=== PATIENT | female | born 1950 | race African-American/Black ===

== ENCOUNTER 2021-09-23 04:36 | Inpatient (IN) | payer MEDICARE, MEDICAID ==
[2021-09-23] VITALS (73 sets, daily range): BP systolic 68–171; BP diastolic 25–98
[~2021-09-23] VITALS: Ht 165.1 cm; Wt 63.5 kg
[~2021-09-23 04:36] MED LIST: ASPI-518 PO; ATEN50TA PO; BENA40TA66 PO; IBUP-2029 PO; OXYB5TAB16 PO; [UNRECOGNIZED DRUG - REMARK]
[2021-09-23] MEDS ORDERED: DILTIAZEM HCL 125 MG in DEXT 5% WATER 100 ML IV ONE (05:00)
[2021-09-23] MEDS ORDERED: PIPERACILLIN/TAZ 3.375G PREMIX 50 ML IV ONE (05:00)
[2021-09-23] MEDS ORDERED: VANCOMYCIN 1G PREMIX 200 ML IV ONE (05:00)
[2021-09-23] MEDS ORDERED: SODIUM CHLORIDE 0.9% 1000ML BAG (SEPSIS BOLUS) IV ONE (05:00)
[2021-09-23 05:01] LABS: HEMATOCRIT. 42.3 % (36.0-48.0); HEMOGLOBIN. 14.1 g/dL (12.0-16.0); MEAN CORPUSCULAR HEMOGLOBIN 31.2 pg (28.0-32.0); MEAN CORPUSCULAR VOLUME 93.6 fL (81.0-99.0); MEAN PLATELET VOLUME 9.7 fl (7.4-10.4); PLATELET 306 x1000/uL (130-400); RED BLOOD CELL COUNT 4.52 mill/uL (4.2-5.4); RED CELL DISTRIBUTION WIDTH 14.1 % (11.6-14.6)
[2021-09-23 05:10] LABS: CHLORIDE 96 mEq/L (98-107)
[2021-09-23] MEDS ORDERED: DILTIAZEM HCL 125 MG in DEXT 5% WATER 100 ML IV NR (05:15)
[2021-09-23 05:19] LABS: CREATINE KINASE 180 IU/L (26-192); ETHANOL BLOOD < 10 mg/dL
[2021-09-23 05:25] LABS: PLATELET ESTIMATE NORMAL
[2021-09-23] MEDS ORDERED: DILTIAZEM HCL 5MG/ML 5ML VIAL IV ONE (05:30)
[2021-09-23] MEDS ORDERED: DIGOXIN 500MCG/2ML AMP IV NR (05:30)
[2021-09-23] MEDS ORDERED: DILTIAZEM HCL 5MG/ML 10ML VIAL IV NR (05:45)
[2021-09-23] MEDS ORDERED: ASPIRIN 325MG EC TABLET PO NR (06:00)
[2021-09-23] MEDS ORDERED: SODIUM CHLORIDE 0.9% 1,000 ML IV ONE (06:15)
[2021-09-23] MEDS: DEXT 5%/0.45% NACL 1000ML 1,000 ML IV SCH ×3 (08:40→22:16)
[2021-09-23] MEDS ORDERED: AMIODARONE HCL 150 MG in DEXT 5% WATER 97 ML IV NR (09:00)
[2021-09-23] MEDS: AMIODARONE HCL 900 MG in DEXT 5% WATER 482 ML IV PRN (09:11)
[2021-09-23] MEDS ORDERED: LIDOCAINE HCL 1% 10 MG/ML 10ML VIAL ONE (09:49)
[2021-09-23] MEDS ORDERED: POTASSIUM CHLORIDE INJ 40 MEQ in DEXT 5% WATER 500 ML IV NR (10:00)
[2021-09-23] MEDS ORDERED: SODIUM CHLORIDE 0.45% 250 ML IV SCH (10:00)
[2021-09-23] MEDS ORDERED: ACETAMINOPHEN 325MG TABLET PO PRN (10:45)
[2021-09-23] MEDS ORDERED: MAGNESIUM/ALUMINUM HYDROXIDE/SIMETHICONE 30ML UDC PO PRN (10:45)
[2021-09-23] MEDS ORDERED: IPRATROPIUM BROMIDE (0.02%) 0.5MG/2.5ML NEB HHN PRN (12:00)
[2021-09-23] MEDS: PHENYLEPHRINE 100 MG in DEXT 5% WATER 240 ML IV PRN (12:13)
[2021-09-23] MEDS ORDERED: METO-539 MT (13:07)
[2021-09-23] MEDS ORDERED: HYDR100T26 PO (13:07)
[2021-09-23] MEDS ORDERED: LISI10TA26 MT (13:07)
[2021-09-23] MEDS ORDERED: METHIMAZOLE 10MG TABLET PO SCH (14:00)
[2021-09-23 14:04] LABS: CLARITY URINE TURBID (CLEAR); COLOR URINE DARK YELLOW (YELLOW); KETONES URINE TRACE (NEGATIVE); LEUKOCYTE ESTERASE URINE 3+ (NEGATIVE); NITRITE URINE NEGATIVE (NEGATIVE); OCCULT BLOOD URINE 1+ (NEGATIVE); PROTEIN URINE 3+ (NEGATIVE); SPECIFIC GRAVITY URINE 1.022 (1.005-1.030); UROBILINOGEN URINE 0.2 E.U./dL (0.2-1.0)
[2021-09-23] MEDS ORDERED: SODIUM CHLORIDE 0.45% 500 ML IV SCH (14:15)
[2021-09-23] MEDS ORDERED: AMIODARONE HCL 150 MG in DEXT 5% WATER 100 ML IV SCH (14:15)
[2021-09-23] MEDS: PROPRANOLOL HCL 10MG TABLET PO SCH ×2 (17:22→22:00)
[2021-09-23 17:58] LABS: BG BASE EXCESS 7.2 mmol/L (-2.0-2.0); BG CARBOXYHEMOGLOBIN 0.3 % (0.5-1.5); BG DEOXYHEMOGLOBIN 5.1 % (0.0-5.0); BG FRACTION INSPIRED OXYGEN 28; BG HCO3 ACT 32.1 mmol/L (22.0-26.0); BG METHEMOGLOBIN 0.2 % (0.0-1.5); BG OXYGEN SATURATION 94.9 % (92.0-98.5); BG OXYHEMOGLOBIN 94.4 % (94.0-97.0); BG PCO2 46.2 mmHg (35.0-45.0); BG PO2 73.9 mmHg (75.0-100.0); BG SAMPLE SITE RIGHT BRACHIAL; BG TOTAL HEMOGLOBIN 14.5 g/dL (12.0-18.0); BG VENT MODE NASAL CANNULA
[2021-09-23] MEDS ORDERED: DIGOXIN 500MCG/2ML AMP IV SCH (18:00)
[2021-09-23] MEDS: PIPERACILLIN/TAZOBACTAM 3.375 G in DEXTROSE 5% WATER 50 ML IV SCH (18:59)
[2021-09-23] MEDS: PANTOPRAZOLE SODIUM 40 MG/VIAL IV SCH (22:16)
[2021-09-23 23:06] LABS: BG BASE EXCESS 4.2 mmol/L (-2.0-2.0); BG CARBOXYHEMOGLOBIN 0.2 % (0.5-1.5); BG DEOXYHEMOGLOBIN 6.6 % (0.0-5.0); BG FRACTION INSPIRED OXYGEN 100; BG HCO3 ACT 29.7 mmol/L (22.0-26.0); BG METHEMOGLOBIN 0.2 % (0.0-1.5); BG OXYGEN SATURATION 93.4 % (92.0-98.5); BG PCO2 48.2 mmHg (35.0-45.0); BG PH 7.408 (7.350-7.450); BG PO2 71.2 mmHg (75.0-100.0); BG SAMPLE SITE RIGHT RADIAL; BG TOTAL HEMOGLOBIN 13.7 g/dL (12.0-18.0); BG VENT MODE MASK - NRB
[2021-09-24] VITALS (96 sets, daily range): BP systolic 76–148; BP diastolic 36–100
[2021-09-24 03:50] LABS: CHLORIDE 104 mEq/L (98-107)
[2021-09-24 04:07] LABS: PHOSPHORUS 1.7 mg/dL (2.5-4.9); T4 FREE 1.62 ng/dL (0.76-1.46)
[2021-09-24] MEDS: DEXT 5%/0.45% NACL 1000ML 1,000 ML IV SCH ×4 (04:33→21:17)
[2021-09-24] MEDS ORDERED: MAGNESIUM 2 G PREMIX 50 ML IV SCH (05:00)
[2021-09-24] MEDS: PROPRANOLOL HCL 10MG TABLET PO SCH ×3 (05:18→21:12)
[2021-09-24] MEDS ORDERED: POTASSIUM CHLORIDE INJ 60 MEQ in DEXT 5% WATER 500 ML IV SCH (06:00)
[2021-09-24] MEDS: AMIODARONE HCL 900 MG in DEXT 5% WATER 482 ML IV PRN (06:07)
[2021-09-24 06:24] LABS: HEMATOCRIT. 40.4 % (36.0-48.0); HEMOGLOBIN. 13.5 g/dL (12.0-16.0); MEAN CORPUSCULAR HEMOGLOBIN 31.1 pg (28.0-32.0); MEAN CORPUSCULAR VOLUME 93.3 fL (81.0-99.0); MEAN PLATELET VOLUME 10.4 fl (7.4-10.4); PLATELET 263 x1000/uL (130-400); RED BLOOD CELL COUNT 4.33 mill/uL (4.2-5.4); RED CELL DISTRIBUTION WIDTH 14.1 % (11.6-14.6)
[2021-09-24] MEDS ORDERED: METHIMAZOLE 5MG TABLET PO SCH (08:20)
[2021-09-24 08:53] LABS: PLATELET ESTIMATE NORMAL
[2021-09-24] MEDS ORDERED: SODIUM PHOS,M-BASIC-D-BASIC 30 MM in DEXT 5% WATER 500 ML IV NR (09:00)
[2021-09-24] MEDS: PANTOPRAZOLE SODIUM 40 MG/VIAL IV SCH ×2 (09:03→21:17)
[2021-09-24] MEDS: METHIMAZOLE 10MG TABLET PO SCH ×2 (09:03→16:53)
[2021-09-24] MEDS: PIPERACILLIN/TAZOBACTAM 3.375 G in DEXTROSE 5% WATER 50 ML IV SCH ×2 (09:03→21:18)
[2021-09-24] MEDS: PHENYLEPHRINE 100 MG in DEXT 5% WATER 240 ML IV PRN (16:09)
[2021-09-25] VITALS (94 sets, daily range): BP systolic 94–171; BP diastolic 43–96
[2021-09-25] MEDS: DEXT 5%/0.45% NACL 1000ML 1,000 ML IV SCH ×2 (03:37→09:13)
[2021-09-25] MEDS: PROPRANOLOL HCL 10MG TABLET PO SCH (06:00)
[2021-09-25 06:20] LABS: BASOPHILS % 0.1 % (0.0-2.0); EOSINOPHILS % 0.9 % (0.0-5.0); HEMATOCRIT. 38.2 % (36.0-48.0); HEMOGLOBIN. 12.8 g/dL (12.0-16.0); MEAN CORPUSCULAR HEMOGLOBIN 31.3 pg (28.0-32.0); MEAN CORPUSCULAR VOLUME 93.6 fL (81.0-99.0); MEAN PLATELET VOLUME 10.3 fl (7.4-10.4); MONOCYTES % 5.9 % (2.0-8.0); NEUTROPHILS % 79.1 % (40.0-76.0); PLATELET 257 x1000/uL (130-400); RED BLOOD CELL COUNT 4.09 mill/uL (4.2-5.4); RED CELL DISTRIBUTION WIDTH 14.2 % (11.6-14.6)
[2021-09-25 07:12] LABS: PHOSPHORUS 2.8 mg/dL (2.5-4.9)
[2021-09-25] MEDS: PIPERACILLIN/TAZOBACTAM 3.375 G in DEXTROSE 5% WATER 50 ML IV SCH ×2 (08:18→20:35)
[2021-09-25] MEDS: PANTOPRAZOLE SODIUM 40 MG/VIAL IV SCH ×2 (08:18→20:35)
[2021-09-25] MEDS: METHIMAZOLE 10MG TABLET PO SCH ×3 (08:19→16:08)
[2021-09-25] MEDS: DEXT 5%/0.9% NACL 1,000 ML IV SCH ×2 (09:45→22:22)
[2021-09-25 09:51] LABS: BG BASE EXCESS 3.3 mmol/L (-2.0-2.0); BG CARBOXYHEMOGLOBIN 0.3 % (0.5-1.5); BG DEOXYHEMOGLOBIN 2.8 % (0.0-5.0); BG FRACTION INSPIRED OXYGEN 28; BG HCO3 ACT 27.8 mmol/L (22.0-26.0); BG METHEMOGLOBIN 0.3 % (0.0-1.5); BG OXYGEN SATURATION 97.2 % (92.0-98.5); BG OXYHEMOGLOBIN 96.6 % (94.0-97.0); BG PCO2 41.7 mmHg (35.0-45.0); BG PH 7.441 (7.350-7.450); BG PO2 95.7 mmHg (75.0-100.0); BG SAMPLE SITE RIGHT RADIAL; BG TOTAL HEMOGLOBIN 12.5 g/dL (12.0-18.0); BG VENT MODE NASAL CANNULA
[2021-09-26] VITALS (79 sets, daily range): BP systolic 112–155; BP diastolic 57–86
[2021-09-26] MEDS: DIPHENHYDRAMINE 50MG/ML VIAL IV PRN (04:23)
[2021-09-26 06:42] LABS: EOSINOPHILS % 1.1 % (0.0-5.0); HEMATOCRIT. 31.8 % (36.0-48.0); HEMOGLOBIN. 10.6 g/dL (12.0-16.0); LYMPHOCYTES % 10.8 % (20.0-50.0); MEAN CORPUSCULAR VOLUME 93.1 fL (81.0-99.0); MEAN PLATELET VOLUME 9.9 fl (7.4-10.4); MONOCYTES % 6.8 % (2.0-8.0); NEUTROPHILS % 81.3 % (40.0-76.0); PLATELET 198 x1000/uL (130-400); RED BLOOD CELL COUNT 3.42 mill/uL (4.2-5.4); RED CELL DISTRIBUTION WIDTH 13.9 % (11.6-14.6)
[2021-09-26] MEDS: PIPERACILLIN/TAZOBACTAM 3.375 G in DEXTROSE 5% WATER 50 ML IV SCH ×3 (09:34→21:41)
[2021-09-26] MEDS: METHIMAZOLE 10MG TABLET PO SCH ×2 (09:34→18:10)
[2021-09-26] MEDS: PANTOPRAZOLE SODIUM 40 MG/VIAL IV SCH ×2 (11:04→21:42)
[2021-09-26] MEDS: DEXT 5%/0.9% NACL 1,000 ML IV SCH (11:49)
[2021-09-26 11:52] LABS: PHOSPHORUS 1.7 mg/dL (2.5-4.9)
[2021-09-26] MEDS: BLOOD SUGAR DIAGNOSTIC STRIP TEST SCH ×2 (13:00→17:01)
[2021-09-26] MEDS ORDERED: DEXTROSE 50% WATER 50ML SYRINGE IV PRN (13:00)
[2021-09-26] MEDS: KCL 20MEQ/100ML PREMIX 100 ML IV SCH ×2 (13:14→15:16)
[2021-09-26] MEDS ORDERED: KCL 20MEQ/100ML PREMIX 100 ML IV NR (17:30)
[2021-09-27] VITALS (46 sets, daily range): BP systolic 138–192; BP diastolic 70–107
[2021-09-27] MEDS: ACETYLCYSTEINE 100MG/ML 10% VIAL 4ML INH SCH ×3 (00:40→16:39)
[2021-09-27] MEDS: IPRATROPIUM BROMIDE (0.02%) 0.5MG/2.5ML NEB HHN SCH ×6 (00:40→20:26)
[2021-09-27] MEDS: DEXT 5%/0.9% NACL 1,000 ML IV SCH (01:56)
[2021-09-27 05:08] LABS: BASOPHILS % 0.2 % (0.0-2.0); EOSINOPHILS % 1.5 % (0.0-5.0); HEMATOCRIT. 33.7 % (36.0-48.0); HEMOGLOBIN. 11.4 g/dL (12.0-16.0); LYMPHOCYTES % 13.2 % (20.0-50.0); MEAN CORPUSCULAR HEMOGLOBIN 31.6 pg (28.0-32.0); MEAN CORPUSCULAR VOLUME 93.1 fL (81.0-99.0); MEAN PLATELET VOLUME 9.3 fl (7.4-10.4); MONOCYTES % 8.6 % (2.0-8.0); NEUTROPHILS % 76.5 % (40.0-76.0); PLATELET 229 x1000/uL (130-400); RED BLOOD CELL COUNT 3.62 mill/uL (4.2-5.4); RED CELL DISTRIBUTION WIDTH 13.9 % (11.6-14.6)
[2021-09-27 05:21] LABS: PHOSPHORUS 1.3 mg/dL (2.5-4.9)
[2021-09-27] MEDS: BLOOD SUGAR DIAGNOSTIC STRIP TEST SCH ×3 (05:42→12:00)
[2021-09-27] MEDS: PIPERACILLIN/TAZOBACTAM 3.375 G in DEXTROSE 5% WATER 50 ML IV SCH ×3 (05:42→21:46)
[2021-09-27] MEDS: PANTOPRAZOLE SODIUM 40 MG/VIAL IV SCH ×2 (09:22→21:48)
[2021-09-27] MEDS: METHIMAZOLE 10MG TABLET PO SCH ×2 (09:22→17:19)
[2021-09-27] MEDS: PROPRANOLOL HCL 10MG TABLET PO SCH ×2 (12:18→21:47)
[2021-09-27] MEDS ORDERED: BISACODYL 10MG SUPP PR PRN (12:30)
[2021-09-27] MEDS: DEXT 5%/0.45% NACL 1000ML 1,000 ML IV SCH (12:42)
[2021-09-27] MEDS: HYDRALAZINE 20MG/ML VIAL IV PRN ×2 (13:57→21:47)
[2021-09-27] MEDS: AMLODIPINE 10MG TABLET PO SCH (13:58)
[2021-09-27] MEDS ORDERED: POTASSIUM PHOS,M-BASIC-D-BASIC 30 MMOL in DEXT 5% WATER 500 ML IV ONE (14:00)
[2021-09-27] MEDS ORDERED: TEMAZEPAM 15MG CAPSULE PO PRN (18:15)
[2021-09-28] VITALS (38 sets, daily range): BP systolic 120–197; BP diastolic 60–118
[2021-09-28] MEDS: ACETYLCYSTEINE 100MG/ML 10% VIAL 4ML INH SCH ×3 (00:06→16:10)
[2021-09-28] MEDS: IPRATROPIUM BROMIDE (0.02%) 0.5MG/2.5ML NEB HHN SCH ×6 (00:06→20:33)
[2021-09-28] MEDS: DIPHENHYDRAMINE 50MG/ML VIAL IV PRN (00:29)
[2021-09-28] MEDS: DEXT 5%/0.45% NACL 1000ML 1,000 ML IV SCH ×2 (01:22→14:10)
[2021-09-28 05:50] LABS: BASOPHILS % 0.2 % (0.0-2.0); EOSINOPHILS % 1.3 % (0.0-5.0); HEMATOCRIT. 34.1 % (36.0-48.0); HEMOGLOBIN. 11.4 g/dL (12.0-16.0); MEAN CORPUSCULAR VOLUME 92.4 fL (81.0-99.0); MEAN PLATELET VOLUME 9.3 fl (7.4-10.4); MONOCYTES % 12.6 % (2.0-8.0); NEUTROPHILS % 68.9 % (40.0-76.0); PLATELET 275 x1000/uL (130-400); RED BLOOD CELL COUNT 3.69 mill/uL (4.2-5.4); RED CELL DISTRIBUTION WIDTH 13.8 % (11.6-14.6)
[2021-09-28 05:57] LABS: CHLORIDE 108 mEq/L (98-107)
[2021-09-28] MEDS: PIPERACILLIN/TAZOBACTAM 3.375 G in DEXTROSE 5% WATER 50 ML IV SCH ×3 (06:01→21:06)
[2021-09-28 06:12] LABS: PHOSPHORUS 1.7 mg/dL (2.5-4.9)
[2021-09-28] MEDS: PANTOPRAZOLE SODIUM 40 MG/VIAL IV SCH ×2 (08:29→21:05)
[2021-09-28] MEDS: AMLODIPINE 10MG TABLET PO SCH (08:29)
[2021-09-28] MEDS: PROPRANOLOL HCL 10MG TABLET PO SCH ×2 (08:29→21:05)
[2021-09-28] MEDS: KCL 20MEQ/100ML PREMIX 100 ML IV SCH ×2 (08:29→10:23)
[2021-09-28] MEDS: METHIMAZOLE 10MG TABLET PO SCH ×2 (08:43→16:05)
[2021-09-28] MEDS ORDERED: MAGNESIUM 2 G PREMIX 50 ML IV SCH (09:00)
[2021-09-28] MEDS ORDERED: POTASSIUM PHOS,M-BASIC-D-BASIC 20 MMOL in DEXT 5% WATER 243.3333 ML IV SCH (11:00)
[2021-09-28] MEDS: HYDRALAZINE 20MG/ML VIAL IV PRN (14:08)
[2021-09-28] MEDS: HYDRALAZINE 20MG/ML VIAL IV SCH (21:05)
[2021-09-29] VITALS (30 sets, daily range): BP systolic 118–162; BP diastolic 58–96
[2021-09-29] MEDS: IPRATROPIUM BROMIDE (0.02%) 0.5MG/2.5ML NEB HHN SCH ×6 (00:53→21:43)
[2021-09-29] MEDS: ACETYLCYSTEINE 100MG/ML 10% VIAL 4ML INH SCH (00:53)
[2021-09-29] MEDS: HYDRALAZINE 20MG/ML VIAL IV SCH ×4 (02:43→21:38)
[2021-09-29] MEDS: DEXT 5%/0.45% NACL 1000ML 1,000 ML IV SCH ×2 (04:24→21:37)
[2021-09-29 06:22] LABS: PHOSPHORUS 2.3 mg/dL (2.5-4.9)
[2021-09-29] MEDS: PIPERACILLIN/TAZOBACTAM 3.375 G in DEXTROSE 5% WATER 50 ML IV SCH ×3 (06:25→21:36)
[2021-09-29 07:14] LABS: BASOPHILS % 0.3 % (0.0-2.0); EOSINOPHILS % 1.6 % (0.0-5.0); HEMATOCRIT. 35.4 % (36.0-48.0); HEMOGLOBIN. 12.1 g/dL (12.0-16.0); LYMPHOCYTES % 17.5 % (20.0-50.0); MEAN CORPUSCULAR HEMOGLOBIN 31.3 pg (28.0-32.0); MEAN CORPUSCULAR VOLUME 91.8 fL (81.0-99.0); MEAN PLATELET VOLUME 9.4 fl (7.4-10.4); MONOCYTES % 11.5 % (2.0-8.0); NEUTROPHILS % 69.1 % (40.0-76.0); PLATELET 286 x1000/uL (130-400); RED BLOOD CELL COUNT 3.86 mill/uL (4.2-5.4); RED CELL DISTRIBUTION WIDTH 13.9 % (11.6-14.6)
[2021-09-29] MEDS: PANTOPRAZOLE SODIUM 40 MG/VIAL IV SCH ×2 (08:07→21:36)
[2021-09-29] MEDS: PROPRANOLOL HCL 10MG TABLET PO SCH (08:08)
[2021-09-29] MEDS: METHIMAZOLE 10MG TABLET PO SCH ×2 (08:08→17:41)
[2021-09-29] MEDS: AMLODIPINE 10MG TABLET PO SCH (08:08)
[2021-09-29] MEDS ORDERED: MAGNESIUM 2 G PREMIX 50 ML IV NR (12:00)
[2021-09-29] MEDS: DILTIAZEM HCL 30MG TABLET PO SCH ×2 (14:21→21:39)
[2021-09-29] MEDS ORDERED: POTASSIUM PHOS,M-BASIC-D-BASIC 15 MMOL in DEXT 5% WATER 245 ML IV NR (14:30)
[2021-09-30] VITALS (8 sets, daily range): BP systolic 131–162; BP diastolic 67–96
[2021-09-30] MEDS: IPRATROPIUM BROMIDE (0.02%) 0.5MG/2.5ML NEB HHN SCH ×4 (01:13→15:06)
[2021-09-30] MEDS: HYDRALAZINE 20MG/ML VIAL IV SCH ×4 (02:54→21:51)
[2021-09-30] MEDS: DILTIAZEM HCL 30MG TABLET PO SCH ×3 (05:18→21:50)
[2021-09-30] MEDS: PIPERACILLIN/TAZOBACTAM 3.375 G in DEXTROSE 5% WATER 50 ML IV SCH ×2 (05:18→16:14)
[2021-09-30 05:35] LABS: HEMATOCRIT. 38.1 % (36.0-48.0); HEMOGLOBIN. 12.5 g/dL (12.0-16.0); MEAN CORPUSCULAR HEMOGLOBIN 30.2 pg (28.0-32.0); MEAN CORPUSCULAR VOLUME 92.1 fL (81.0-99.0); MEAN PLATELET VOLUME 9.4 fl (7.4-10.4); PLATELET 353 x1000/uL (130-400); RED BLOOD CELL COUNT 4.13 mill/uL (4.2-5.4); RED CELL DISTRIBUTION WIDTH 13.8 % (11.6-14.6)
[2021-09-30 05:58] LABS: CHLORIDE 106 mEq/L (98-107)
[2021-09-30 06:03] LABS: PHOSPHORUS 2.2 mg/dL (2.5-4.9)
[2021-09-30 06:50] LABS: PLATELET ESTIMATE NORMAL
[2021-09-30] MEDS: METHIMAZOLE 10MG TABLET PO SCH ×2 (10:09→16:13)
[2021-09-30] MEDS: PANTOPRAZOLE SODIUM 40 MG/VIAL IV SCH ×2 (10:10→21:49)
[2021-09-30] MEDS: AMLODIPINE 10MG TABLET PO SCH (10:10)
[2021-09-30] MEDS ORDERED: SODIUM PHOS,M-BASIC-D-BASIC 15 MM in DEXT 5% WATER 245 ML IV ONE (11:00)
[2021-09-30] MEDS ORDERED: CEFTRIAXONE 1 G PREMIX 50 ML IV SCH (15:30)
[2021-09-30] MEDS: CEFTRIAXONE 1,000 MG in DEXTROSE 5% WATER 50 ML IV SCH (20:23)
[2021-09-30] MEDS: DIPHENHYDRAMINE 50MG/ML VIAL IV PRN (21:49)
[2021-09-30] MEDS: METRONIDAZOLE 500MG TABLET PO SCH (21:50)
[2021-10-01] VITALS (10 sets, daily range): BP systolic 131–169; BP diastolic 72–95
[2021-10-01] MEDS: IPRATROPIUM BROMIDE (0.02%) 0.5MG/2.5ML NEB HHN SCH ×8 (01:31→23:57)
[2021-10-01] MEDS: HYDRALAZINE 20MG/ML VIAL IV SCH ×4 (03:10→23:49)
[2021-10-01] MEDS: DILTIAZEM HCL 30MG TABLET PO SCH ×3 (06:36→23:49)
[2021-10-01 07:21] LABS: BASOPHILS % 0.5 % (0.0-2.0); EOSINOPHILS % 1.8 % (0.0-5.0); HEMATOCRIT. 34.7 % (36.0-48.0); HEMOGLOBIN. 11.8 g/dL (12.0-16.0); LYMPHOCYTES % 20.3 % (20.0-50.0); MEAN CORPUSCULAR HEMOGLOBIN 30.8 pg (28.0-32.0); MEAN CORPUSCULAR VOLUME 90.7 fL (81.0-99.0); NEUTROPHILS % 67.4 % (40.0-76.0); PLATELET 341 x1000/uL (130-400); RED BLOOD CELL COUNT 3.82 mill/uL (4.2-5.4)
[2021-10-01 07:40] LABS: CHLORIDE 108 mEq/L (98-107)
[2021-10-01 08:00] LABS: PHOSPHORUS 2.1 mg/dL (2.5-4.9); T4 FREE 1.03 ng/dL (0.76-1.46)
[2021-10-01] MEDS: PANTOPRAZOLE SODIUM 40 MG/VIAL IV SCH ×2 (08:39→23:47)
[2021-10-01] MEDS: AMLODIPINE 10MG TABLET PO SCH (08:40)
[2021-10-01] MEDS: METHIMAZOLE 5MG TABLET PO SCH (08:40)
[2021-10-01] MEDS: METRONIDAZOLE 500MG TABLET PO SCH ×2 (08:40→23:47)
[2021-10-01] MEDS ORDERED: MAGNESIUM 2 G PREMIX 50 ML IV SCH (10:00)
[2021-10-01] MEDS ORDERED: POTASSIUM CHLORIDE INJ 40 MEQ in DEXT 5% WATER 250 ML IV SCH (10:00)
[2021-10-01] MEDS ORDERED: POTASSIUM PHOS,M-BASIC-D-BASIC 15 MMOL in DEXT 5% WATER 250 ML IV SCH (11:00)
[2021-10-01] MEDS: CEFTRIAXONE 1,000 MG in DEXTROSE 5% WATER 50 ML IV SCH (18:13)
[2021-10-01] MEDS: ACETAMINOPHEN 325MG TABLET PO PRN (23:47)
[2021-10-01] MEDS: DIPHENHYDRAMINE 50MG/ML VIAL IV PRN (23:47)
[2021-10-02] VITALS (10 sets, daily range): BP systolic 125–152; BP diastolic 69–98
[2021-10-02] MEDS: IPRATROPIUM BROMIDE (0.02%) 0.5MG/2.5ML NEB HHN SCH ×5 (00:32→21:20)
[2021-10-02] MEDS: HYDRALAZINE 20MG/ML VIAL IV SCH ×4 (02:00→20:00)
[2021-10-02 06:24] LABS: BASOPHILS % 0.6 % (0.0-2.0); HEMATOCRIT. 36.4 % (36.0-48.0); HEMOGLOBIN. 12.6 g/dL (12.0-16.0); MEAN CORPUSCULAR HEMOGLOBIN 31.4 pg (28.0-32.0); MEAN CORPUSCULAR VOLUME 90.7 fL (81.0-99.0); MEAN PLATELET VOLUME 8.6 fl (7.4-10.4); MONOCYTES % 9.1 % (2.0-8.0); NEUTROPHILS % 70.3 % (40.0-76.0); PLATELET 415 x1000/uL (130-400); RED BLOOD CELL COUNT 4.02 mill/uL (4.2-5.4); RED CELL DISTRIBUTION WIDTH 14.2 % (11.6-14.6)
[2021-10-02] MEDS: ONDANSETRON HCL 4MG/2ML INJ IV PRN ×4 (06:28→21:25)
[2021-10-02] MEDS: DILTIAZEM HCL 30MG TABLET PO SCH ×3 (06:29→23:26)
[2021-10-02] MEDS: ACETAMINOPHEN 325MG TABLET PO PRN (06:29)
[2021-10-02 06:38] LABS: CHLORIDE 105 mEq/L (98-107)
[2021-10-02 06:57] LABS: PHOSPHORUS 2.1 mg/dL (2.5-4.9)
[2021-10-02] MEDS ORDERED: POTASSIUM PHOS,M-BASIC-D-BASIC 15 MMOL in DEXT 5% WATER 245 ML IV ONE (08:30)
[2021-10-02] MEDS: PANTOPRAZOLE SODIUM 40 MG/VIAL IV SCH ×2 (09:30→21:23)
[2021-10-02] MEDS: DIPHENHYDRAMINE 50MG/ML VIAL IV PRN (09:31)
[2021-10-02] MEDS: AMLODIPINE 10MG TABLET PO SCH (09:31)
[2021-10-02] MEDS: METRONIDAZOLE 500MG TABLET PO SCH ×2 (09:31→21:29)
[2021-10-02] MEDS: METHIMAZOLE 5MG TABLET PO SCH (09:31)
[2021-10-02] MEDS ORDERED: POTASSIUM PHOS,M-BASIC-D-BASIC 15 MMOL in DEXT 5% WATER 250 ML IV SCH (12:00)
[2021-10-02] MEDS: CEFTRIAXONE 1,000 MG in DEXTROSE 5% WATER 50 ML IV SCH (20:20)
[2021-10-03] VITALS: BP 142/72
[2021-10-03] MEDS: HYDRALAZINE 20MG/ML VIAL IV SCH ×4 (02:11→21:53)
[2021-10-03 04:00] VITALS: BP 125/70
[2021-10-03] MEDS: DILTIAZEM HCL 30MG TABLET PO SCH ×3 (06:03→23:50)
[2021-10-03 08:00] VITALS: BP 131/69
[2021-10-03] MEDS: IPRATROPIUM BROMIDE (0.02%) 0.5MG/2.5ML NEB HHN SCH ×4 (08:05→20:40)
[2021-10-03 09:17] LABS: BASOPHILS % 0.3 % (0.0-2.0); EOSINOPHILS % 0.4 % (0.0-5.0); HEMATOCRIT. 33.1 % (36.0-48.0); HEMOGLOBIN. 11.2 g/dL (12.0-16.0); LYMPHOCYTES % 13.8 % (20.0-50.0); MEAN CORPUSCULAR VOLUME 91.8 fL (81.0-99.0); MEAN PLATELET VOLUME 8.4 fl (7.4-10.4); MONOCYTES % 7.5 % (2.0-8.0); PLATELET 387 x1000/uL (130-400); RED BLOOD CELL COUNT 3.61 mill/uL (4.2-5.4); RED CELL DISTRIBUTION WIDTH 14.6 % (11.6-14.6)
[2021-10-03] MEDS: PANTOPRAZOLE SODIUM 40 MG/VIAL IV SCH ×2 (09:53→21:52)
[2021-10-03] MEDS: AMLODIPINE 10MG TABLET PO SCH (09:53)
[2021-10-03] MEDS: METRONIDAZOLE 500MG TABLET PO SCH ×2 (09:53→21:52)
[2021-10-03] MEDS: METHIMAZOLE 5MG TABLET PO SCH (09:55)
[2021-10-03] MEDS: ONDANSETRON HCL 4MG/2ML INJ IV PRN (10:51)
[2021-10-03 12:00] VITALS: BP 125/63
[2021-10-03 15:55] VITALS: BP 124/63
[2021-10-03] MEDS: CEFTRIAXONE 1,000 MG in DEXTROSE 5% WATER 50 ML IV SCH (17:08)
[2021-10-03 20:00] VITALS: BP 135/64
[2021-10-04] VITALS: BP 146/52
[2021-10-04] MEDS: IPRATROPIUM BROMIDE (0.02%) 0.5MG/2.5ML NEB HHN SCH ×6 (00:26→20:38)
[2021-10-04] MEDS: HYDRALAZINE 20MG/ML VIAL IV SCH ×4 (03:37→20:52)
[2021-10-04 04:00] VITALS: BP 145/68
[2021-10-04] MEDS: DILTIAZEM HCL 30MG TABLET PO SCH ×2 (05:32→13:36)
[2021-10-04 06:50] LABS: BASOPHILS % 0.5 % (0.0-2.0); EOSINOPHILS % 1.3 % (0.0-5.0); HEMATOCRIT. 37.2 % (36.0-48.0); HEMOGLOBIN. 12.1 g/dL (12.0-16.0); LYMPHOCYTES % 16.1 % (20.0-50.0); MEAN CORPUSCULAR HEMOGLOBIN 31.2 pg (28.0-32.0); MEAN CORPUSCULAR VOLUME 95.9 fL (81.0-99.0); MEAN PLATELET VOLUME 8.5 fl (7.4-10.4); MONOCYTES % 7.6 % (2.0-8.0); NEUTROPHILS % 74.5 % (40.0-76.0); PLATELET 431 x1000/uL (130-400); RED BLOOD CELL COUNT 3.88 mill/uL (4.2-5.4); RED CELL DISTRIBUTION WIDTH 15.2 % (11.6-14.6)
[2021-10-04 06:54] LABS: PHOSPHORUS 1.8 mg/dL (2.5-4.9)
[2021-10-04 08:00] VITALS: BP 154/70
[2021-10-04] MEDS: PANTOPRAZOLE SODIUM 40 MG/VIAL IV SCH ×2 (08:51→20:52)
[2021-10-04] MEDS: METRONIDAZOLE 500MG TABLET PO SCH ×2 (08:51→20:52)
[2021-10-04] MEDS: METHIMAZOLE 5MG TABLET PO SCH (08:52)
[2021-10-04] MEDS: AMLODIPINE 10MG TABLET PO SCH (08:52)
[2021-10-04 12:00] VITALS: BP 130/66
[2021-10-04] MEDS ORDERED: POTASSIUM PHOS,M-BASIC-D-BASIC 30 MMOL in DEXT 5% WATER 500 ML IV SCH (12:00)
[2021-10-04 16:00] VITALS: BP 142/64
[2021-10-04] MEDS: CEFTRIAXONE 1,000 MG in DEXTROSE 5% WATER 50 ML IV SCH (19:03)
[2021-10-04 20:00] VITALS: BP 135/65
== END 2021-10-04 21:15 | DRG 871 ==
LOC: ER 04:36 → CVICU 05:21 → ENRESERV 06:42 → 5EST 09-29 14:00 → 6WST 10-02 13:30
PROVIDERS: ADMIT Internal Medicine; ATTEND Internal Medicine
PROC: 05HY33Z Insertion of Infusion Device into Upper Vein, Percutaneous Approach (ICD-10-PCS; principal; 2021-09-23)
DX: A41.89 Other specified sepsis (principal); I21.4 Non-ST elevation (NSTEMI) myocardial infarction; I50.31 Acute diastolic (congestive) heart failure; J96.01 Acute respiratory failure with hypoxia; R65.21 Severe sepsis with septic shock; J69.0 Pneumonitis due to inhalation of food and vomit; E44.1 Mild protein-calorie malnutrition; E87.4 Mixed disorder of acid-base balance; G93.40 Encephalopathy, unspecified; N17.9 Acute kidney failure, unspecified; N39.0 Urinary tract infection, site not specified; J98.11 Atelectasis; I48.20 Chronic atrial fibrillation, unspecified; I13.0 Hypertensive heart and chronic kidney disease with heart failure and stage 1 through stage 4 chronic kidney disease, or unspecified chronic kidney disease; E87.2 Acidosis; E87.3 Alkalosis; K56.600 Partial intestinal obstruction, unspecified as to cause; N18.9 Chronic kidney disease, unspecified; Z20.822 Contact with and (suspected) exposure to COVID-19; E78.5 Hyperlipidemia, unspecified; E87.6 Hypokalemia; E05.90 Thyrotoxicosis, unspecified without thyrotoxic crisis or storm; E11.22 Type 2 diabetes mellitus with diabetic chronic kidney disease; F03.90 Unspecified dementia, unspecified severity, without behavioral disturbance, psychotic disturbance, mood disturbance, and anxiety; E83.39 Other disorders of phosphorus metabolism; K52.9 Noninfective gastroenteritis and colitis, unspecified; G90.9 Disorder of the autonomic nervous system, unspecified; I27.20 Pulmonary hypertension, unspecified; I16.0 Hypertensive urgency; E01.0 Iodine-deficiency related diffuse (endemic) goiter; K56.41 Fecal impaction; K80.20 Calculus of gallbladder without cholecystitis without obstruction; E11.65 Type 2 diabetes mellitus with hyperglycemia; B96.1 Klebsiella pneumoniae [K. pneumoniae] as the cause of diseases classified elsewhere; Z83.3 Family history of diabetes mellitus; Z82.49 Family history of ischemic heart disease and other diseases of the circulatory system; Z68.23 Body mass index [BMI] 23.0-23.9, adult; Z86.73 Personal history of transient ischemic attack (TIA), and cerebral infarction without residual deficits; Z90.710 Acquired absence of both cervix and uterus
CPT/HCPCS: 36415; 36573; 36600; 71045; 71250; 74018; 74176; 76770; 80048; 80051; 80053; 80320; 81003; 82375; 82533; 82550; 82805; 82962; 83520; 83605; 83735; 84100; 84132; 84145; 84439; 84443; 84481; 84484; 85025; 87077; 87186; 87426; 87804; 92610; 93005; 93306; 94640; 97162; 97164; 97166; 97168; 97535; 99285; C1725; C9113; J0282; J0360; J0696; J1160; J1200; J2370; J2405; J2543; J3370; J3475; J3480; J3490; J7030; J7042; J7060; J7608; G0480

== ENCOUNTER 2021-10-04 22:15 | Inpatient (IN) | payer MEDICARE, MEDICAID ==
[~2021-10-04] VITALS: Ht 165.1 cm; Wt 63.5 kg
[2021-10-04 22:14] VITALS: BP 123/59
[2021-10-04 22:15] VITALS: BP 123/59
[~2021-10-04 22:15] MED LIST changes: -ASPI-518 PO; -ATEN50TA PO; -BENA40TA66 PO; +HYDR100T26 PO; +LISI10TA26 MT; +METO-539 MT
[2021-10-04] MEDS ORDERED: HYDRALAZINE 20MG/ML VIAL IV PRN (23:45)
[2021-10-04] MEDS ORDERED: IPRATROPIUM/ALBUTEROL 0.5-3(2.5)MG/3ML NEB HHN PRN (23:45)
[2021-10-05] MEDS ORDERED: IPRATROPIUM/ALBUTEROL 0.5-3(2.5)MG/3ML NEB HHN PRN
[2021-10-05] MEDS ORDERED: DIPHENHYDRAMINE 12.5MG/5ML UDC PO PRN
[2021-10-05] MEDS ORDERED: BISACODYL 10MG SUPP PR PRN
[2021-10-05] MEDS ORDERED: MAGNESIUM/ALUMINUM HYDROXIDE/SIMETHICONE 30ML UDC PO PRN
[2021-10-05] MEDS ORDERED: ONDANSETRON HCL 4MG TABLET PO PRN
[2021-10-05] MEDS ORDERED: HYDRALAZINE 10 MG in SODIUM CHLORIDE 0.9% 49.5 ML IV PRN (00:30)
[2021-10-05 04:33] LABS: CLARITY URINE CLOUDY (CLEAR); COLOR URINE YELLOW (YELLOW); KETONES URINE NEGATIVE (NEGATIVE); LEUKOCYTE ESTERASE URINE NEGATIVE (NEGATIVE); NITRITE URINE NEGATIVE (NEGATIVE); OCCULT BLOOD URINE NEGATIVE (NEGATIVE); PROTEIN URINE NEGATIVE (NEGATIVE); SPECIFIC GRAVITY URINE 1.014 (1.005-1.030); UROBILINOGEN URINE 0.2 E.U./dL (0.2-1.0)
[2021-10-05 05:47] LABS: BASOPHILS % 0.6 % (0.0-2.0); EOSINOPHILS % 1.9 % (0.0-5.0); HEMATOCRIT. 32.7 % (36.0-48.0); HEMOGLOBIN. 11.2 g/dL (12.0-16.0); LYMPHOCYTES % 18.4 % (20.0-50.0); MEAN CORPUSCULAR HEMOGLOBIN 31.4 pg (28.0-32.0); MEAN CORPUSCULAR VOLUME 91.9 fL (81.0-99.0); MEAN PLATELET VOLUME 7.8 fl (7.4-10.4); MONOCYTES % 10.4 % (2.0-8.0); NEUTROPHILS % 68.7 % (40.0-76.0); PLATELET 435 x1000/uL (130-400); RED BLOOD CELL COUNT 3.56 mill/uL (4.2-5.4); RED CELL DISTRIBUTION WIDTH 14.6 % (11.6-14.6)
[2021-10-05] MEDS: DILTIAZEM HCL 30MG TABLET PO SCH ×3 (06:00→22:02)
[2021-10-05 06:48] LABS: CHLORIDE 103 mEq/L (98-107)
[2021-10-05 08:00] VITALS: BP 137/67
[2021-10-05] MEDS: PANTOPRAZOLE 40MG DR TABLET PO SCH ×2 (09:38→22:02)
[2021-10-05] MEDS: METHIMAZOLE 5MG TABLET PO SCH (09:38)
[2021-10-05] MEDS: METRONIDAZOLE 500MG TABLET PO SCH ×2 (09:38→22:02)
[2021-10-05] MEDS: AMLODIPINE 5MG TABLET PO SCH (09:39)
[2021-10-05 12:00] VITALS: BP 135/65
[2021-10-05 16:00] VITALS: BP 131/72
[2021-10-05 20:00] VITALS: BP 144/71
[2021-10-05 20:29] VITALS: BP 144/71
[2021-10-05] MEDS: CEFTRIAXONE 1,000 MG in DEXTROSE 5% WATER 50 ML IV SCH (22:02)
[2021-10-06 05:49] LABS: CHLORIDE 102 mEq/L (98-107)
[2021-10-06 05:57] LABS: PHOSPHORUS 1.4 mg/dL (2.5-4.9)
[2021-10-06] MEDS: DILTIAZEM HCL 30MG TABLET PO SCH ×3 (06:33→22:14)
[2021-10-06 06:49] LABS: BASOPHILS % 0.8 % (0.0-2.0); EOSINOPHILS % 2.1 % (0.0-5.0); HEMATOCRIT. 32.4 % (36.0-48.0); MEAN CORPUSCULAR HEMOGLOBIN 31.2 pg (28.0-32.0); MEAN CORPUSCULAR VOLUME 91.9 fL (81.0-99.0); MONOCYTES % 12.5 % (2.0-8.0); NEUTROPHILS % 60.6 % (40.0-76.0); PLATELET 484 x1000/uL (130-400); RED BLOOD CELL COUNT 3.52 mill/uL (4.2-5.4); RED CELL DISTRIBUTION WIDTH 14.1 % (11.6-14.6)
[2021-10-06 08:00] VITALS: BP 156/78
[2021-10-06] MEDS ORDERED: POTASSIUM PHOS,M-BASIC-D-BASIC 30 MMOL in DEXT 5% WATER 500 ML IV NR (10:00)
[2021-10-06] MEDS: PANTOPRAZOLE 40MG DR TABLET PO SCH ×2 (10:12→22:13)
[2021-10-06] MEDS: AMLODIPINE 5MG TABLET PO SCH (10:13)
[2021-10-06] MEDS: METRONIDAZOLE 500MG TABLET PO SCH ×2 (10:13→22:13)
[2021-10-06] MEDS ORDERED: MAGNESIUM 1 G PREMIX 100 ML IV NR (13:00)
[2021-10-06] MEDS: METHIMAZOLE 5MG TABLET PO SCH (14:21)
[2021-10-06 20:00] VITALS: BP 147/72
[2021-10-06] MEDS: CEFTRIAXONE 1,000 MG in DEXTROSE 5% WATER 50 ML IV SCH (22:13)
[2021-10-07] MEDS: DILTIAZEM HCL 30MG TABLET PO SCH ×3 (06:41→21:04)
[2021-10-07 06:46] LABS: BASOPHILS % 1.4 % (0.0-2.0); EOSINOPHILS % 2.5 % (0.0-5.0); HEMATOCRIT. 30.6 % (36.0-48.0); HEMOGLOBIN. 10.4 g/dL (12.0-16.0); LYMPHOCYTES % 35.2 % (20.0-50.0); MEAN CORPUSCULAR HEMOGLOBIN 31.3 pg (28.0-32.0); MEAN CORPUSCULAR VOLUME 91.9 fL (81.0-99.0); MEAN PLATELET VOLUME 7.7 fl (7.4-10.4); MONOCYTES % 13.2 % (2.0-8.0); NEUTROPHILS % 47.7 % (40.0-76.0); PLATELET 460 x1000/uL (130-400); RED BLOOD CELL COUNT 3.33 mill/uL (4.2-5.4)
[2021-10-07 07:24] LABS: CHLORIDE 102 mEq/L (98-107)
[2021-10-07 07:31] LABS: PHOSPHORUS 2.3 mg/dL (2.5-4.9)
[2021-10-07 08:00] VITALS: BP 148/81
[2021-10-07] MEDS: AMLODIPINE 5MG TABLET PO SCH (09:34)
[2021-10-07] MEDS: METRONIDAZOLE 500MG TABLET PO SCH ×2 (09:34→21:04)
[2021-10-07] MEDS: METHIMAZOLE 5MG TABLET PO SCH (09:34)
[2021-10-07] MEDS: PANTOPRAZOLE 40MG DR TABLET PO SCH (09:34)
[2021-10-07] MEDS: ACETAMINOPHEN 650MG/20.3ML UDC PO PRN (09:39)
[2021-10-07] MEDS ORDERED: BARIUM SULFATE 176 GM SUSP.RECON ONE (12:01)
[2021-10-07] MEDS: POTASSIUM-SODIUM PHOSPHATE POWDER PACKET PO SCH (14:18)
[2021-10-07 20:00] VITALS: BP 150/72
[2021-10-07] MEDS: CEFTRIAXONE 1,000 MG in DEXTROSE 5% WATER 50 ML IV SCH (21:04)
[2021-10-08] MEDS: DILTIAZEM HCL 30MG TABLET PO SCH ×3 (06:03→21:44)
[2021-10-08 08:00] VITALS: BP 149/74
[2021-10-08] MEDS: METHIMAZOLE 5MG TABLET PO SCH (09:00)
[2021-10-08] MEDS: POTASSIUM-SODIUM PHOSPHATE POWDER PACKET PO SCH (09:31)
[2021-10-08] MEDS: METRONIDAZOLE 500MG TABLET PO SCH ×2 (09:32→21:43)
[2021-10-08] MEDS: FAMOTIDINE 20MG TABLET PO SCH (09:32)
[2021-10-08] MEDS: AMLODIPINE 5MG TABLET PO SCH (09:33)
[2021-10-08 20:00] VITALS: BP 142/71
[2021-10-08] MEDS: CEFTRIAXONE 1,000 MG in DEXTROSE 5% WATER 50 ML IV SCH (21:43)
[2021-10-09] MEDS: DILTIAZEM HCL 30MG TABLET PO SCH ×3 (05:36→21:48)
[2021-10-09 06:14] LABS: BASOPHILS % 1.4 % (0.0-2.0); EOSINOPHILS % 2.5 % (0.0-5.0); HEMATOCRIT. 34.9 % (36.0-48.0); HEMOGLOBIN. 11.7 g/dL (12.0-16.0); LYMPHOCYTES % 35.6 % (20.0-50.0); MEAN CORPUSCULAR HEMOGLOBIN 31.5 pg (28.0-32.0); MEAN CORPUSCULAR VOLUME 94.6 fL (81.0-99.0); MEAN PLATELET VOLUME 7.7 fl (7.4-10.4); MONOCYTES % 10.1 % (2.0-8.0); NEUTROPHILS % 50.4 % (40.0-76.0); PLATELET 466 x1000/uL (130-400); RED BLOOD CELL COUNT 3.69 mill/uL (4.2-5.4); RED CELL DISTRIBUTION WIDTH 14.3 % (11.6-14.6)
[2021-10-09 06:43] LABS: CHLORIDE 99 mEq/L (98-107)
[2021-10-09 06:54] LABS: PHOSPHORUS 2.2 mg/dL (2.5-4.9)
[2021-10-09 08:00] VITALS: BP 151/76
[2021-10-09] MEDS: AMLODIPINE 5MG TABLET PO SCH (09:48)
[2021-10-09] MEDS: FAMOTIDINE 20MG TABLET PO SCH (09:48)
[2021-10-09] MEDS: POTASSIUM-SODIUM PHOSPHATE POWDER PACKET PO SCH (09:48)
[2021-10-09] MEDS: METHIMAZOLE 5MG TABLET PO SCH (10:21)
[2021-10-09] MEDS ORDERED: MAGNESIUM 2 G PREMIX 50 ML IV NR (12:00)
[2021-10-09] MEDS ORDERED: POTASSIUM PHOS,M-BASIC-D-BASIC 20 MMOL in DEXT 5% WATER 243.3333 ML IV NR (13:00)
[2021-10-09] MEDS: MEGESTROL ACETATE 400 MG/10 ML UDC PO SCH (17:48)
[2021-10-09 20:00] VITALS: BP 145/75
[2021-10-10] MEDS: DILTIAZEM HCL 30MG TABLET PO SCH ×3 (06:49→22:30)
[2021-10-10 08:00] VITALS: BP 147/79
[2021-10-10] MEDS: MEGESTROL ACETATE 400 MG/10 ML UDC PO SCH ×2 (09:22→16:48)
[2021-10-10] MEDS: FAMOTIDINE 20MG TABLET PO SCH (09:23)
[2021-10-10] MEDS: AMLODIPINE 5MG TABLET PO SCH (09:23)
[2021-10-10] MEDS: METHIMAZOLE 10MG TABLET PO SCH (09:23)
[2021-10-10] MEDS: POTASSIUM-SODIUM PHOSPHATE POWDER PACKET PO SCH (09:23)
[2021-10-10 20:07] VITALS: BP 149/72
[2021-10-11] MEDS: DILTIAZEM HCL 30MG TABLET PO SCH ×3 (07:00→21:46)
[2021-10-11 08:00] VITALS: BP 150/88
[2021-10-11] MEDS: MEGESTROL ACETATE 400 MG/10 ML UDC PO SCH ×2 (10:23→18:48)
[2021-10-11] MEDS: FAMOTIDINE 20MG TABLET PO SCH (10:23)
[2021-10-11] MEDS: METHIMAZOLE 10MG TABLET PO SCH (10:24)
[2021-10-11] MEDS: AMLODIPINE 5MG TABLET PO SCH (10:24)
[2021-10-11] MEDS: POTASSIUM-SODIUM PHOSPHATE POWDER PACKET PO SCH (10:27)
[2021-10-11 20:00] VITALS: BP 147/77
[2021-10-12] MEDS: DILTIAZEM HCL 30MG TABLET PO SCH ×3 (06:26→22:33)
[2021-10-12 06:35] LABS: EOSINOPHILS % 1.5 % (0.0-5.0); HEMATOCRIT. 32.6 % (36.0-48.0); HEMOGLOBIN. 11.1 g/dL (12.0-16.0); LYMPHOCYTES % 33.8 % (20.0-50.0); MEAN CORPUSCULAR HEMOGLOBIN 31.3 pg (28.0-32.0); MEAN CORPUSCULAR VOLUME 91.7 fL (81.0-99.0); MEAN PLATELET VOLUME 7.8 fl (7.4-10.4); MONOCYTES % 9.1 % (2.0-8.0); NEUTROPHILS % 54.6 % (40.0-76.0); PLATELET 442 x1000/uL (130-400); RED BLOOD CELL COUNT 3.56 mill/uL (4.2-5.4); RED CELL DISTRIBUTION WIDTH 14.7 % (11.6-14.6)
[2021-10-12 07:53] LABS: CHLORIDE 101 mEq/L (98-107)
[2021-10-12 08:00] VITALS: BP 134/75
[2021-10-12 08:03] LABS: PHOSPHORUS 2.5 mg/dL (2.5-4.9)
[2021-10-12] MEDS: MEGESTROL ACETATE 400 MG/10 ML UDC PO SCH ×2 (10:28→18:14)
[2021-10-12] MEDS: FAMOTIDINE 20MG TABLET PO SCH (10:28)
[2021-10-12] MEDS: POTASSIUM-SODIUM PHOSPHATE POWDER PACKET PO SCH (10:28)
[2021-10-12] MEDS: METHIMAZOLE 10MG TABLET PO SCH (10:28)
[2021-10-12] MEDS: AMLODIPINE 5MG TABLET PO SCH (10:29)
[2021-10-12] MEDS ORDERED: POLYETHYLENE GLYCOL 3350 (17GM) 1 DOSE PACK PO PRN (16:00)
[2021-10-12 20:00] VITALS: BP 152/72
[2021-10-13] MEDS: DILTIAZEM HCL 30MG TABLET PO SCH ×3 (06:21→22:07)
[2021-10-13 08:00] VITALS: BP 137/79
[2021-10-13] MEDS: FAMOTIDINE 20MG TABLET PO SCH (08:10)
[2021-10-13] MEDS: AMLODIPINE 5MG TABLET PO SCH (08:10)
[2021-10-13] MEDS: MEGESTROL ACETATE 400 MG/10 ML UDC PO SCH ×2 (08:10→16:25)
[2021-10-13] MEDS: POTASSIUM-SODIUM PHOSPHATE POWDER PACKET PO SCH (08:10)
[2021-10-13] MEDS: METHIMAZOLE 10MG TABLET PO SCH (08:10)
[2021-10-13 20:28] VITALS: BP 154/59
[2021-10-14 06:20] LABS: BASOPHILS % 1.2 % (0.0-2.0); EOSINOPHILS % 1.4 % (0.0-5.0); HEMATOCRIT. 34.1 % (36.0-48.0); HEMOGLOBIN. 11.5 g/dL (12.0-16.0); LYMPHOCYTES % 31.5 % (20.0-50.0); MEAN CORPUSCULAR HEMOGLOBIN 30.8 pg (28.0-32.0); MEAN CORPUSCULAR VOLUME 91.6 fL (81.0-99.0); MEAN PLATELET VOLUME 7.8 fl (7.4-10.4); MONOCYTES % 9.7 % (2.0-8.0); NEUTROPHILS % 56.2 % (40.0-76.0); PLATELET 385 x1000/uL (130-400); RED BLOOD CELL COUNT 3.72 mill/uL (4.2-5.4); RED CELL DISTRIBUTION WIDTH 14.4 % (11.6-14.6)
[2021-10-14 06:50] LABS: CHLORIDE 103 mEq/L (98-107)
[2021-10-14] MEDS: DILTIAZEM HCL 30MG TABLET PO SCH ×2 (06:50→14:41)
[2021-10-14 08:00] VITALS: BP 142/78
[2021-10-14] MEDS: METHIMAZOLE 10MG TABLET PO SCH (09:00)
[2021-10-14] MEDS: MEGESTROL ACETATE 400 MG/10 ML UDC PO SCH ×2 (09:29→17:55)
[2021-10-14] MEDS: POTASSIUM-SODIUM PHOSPHATE POWDER PACKET PO SCH (09:29)
[2021-10-14] MEDS: FAMOTIDINE 20MG TABLET PO SCH (09:30)
[2021-10-14] MEDS: AMLODIPINE 5MG TABLET PO SCH (09:30)
[2021-10-14] MEDS: ACETAMINOPHEN 650MG/20.3ML UDC PO PRN (09:30)
[2021-10-14 17:38] LABS: T4 FREE 1.06 ng/dL (0.76-1.46)
[2021-10-14 20:05] VITALS: BP 147/62
[2021-10-14] MEDS: DILTIAZEM HCL 60MG TABLET PO SCH (21:50)
[2021-10-15] MEDS: DILTIAZEM HCL 60MG TABLET PO SCH ×3 (06:47→21:37)
[2021-10-15 08:00] VITALS: BP 144/78
[2021-10-15] MEDS: MEGESTROL ACETATE 400 MG/10 ML UDC PO SCH ×2 (08:37→18:15)
[2021-10-15] MEDS: POTASSIUM-SODIUM PHOSPHATE POWDER PACKET PO SCH (08:37)
[2021-10-15] MEDS: FAMOTIDINE 20MG TABLET PO SCH (08:37)
[2021-10-15 20:00] VITALS: BP 113/63
[2021-10-16] MEDS: DILTIAZEM HCL 60MG TABLET PO SCH ×3 (05:39→21:52)
[2021-10-16 07:01] LABS: BASOPHILS % 0.4 % (0.0-2.0); EOSINOPHILS % 1.2 % (0.0-5.0); HEMOGLOBIN. 11.7 g/dL (12.0-16.0); LYMPHOCYTES % 15.9 % (20.0-50.0); MEAN CORPUSCULAR VOLUME 92.9 fL (81.0-99.0); MEAN PLATELET VOLUME 8.6 fl (7.4-10.4); MONOCYTES % 9.1 % (2.0-8.0); NEUTROPHILS % 73.4 % (40.0-76.0); PLATELET 377 x1000/uL (130-400); RED BLOOD CELL COUNT 3.77 mill/uL (4.2-5.4); RED CELL DISTRIBUTION WIDTH 14.7 % (11.6-14.6)
[2021-10-16 07:06] LABS: CHLORIDE 102 mEq/L (98-107)
[2021-10-16 07:28] LABS: PHOSPHORUS 2.2 mg/dL (2.5-4.9)
[2021-10-16 08:13] VITALS: BP 138/74
[2021-10-16] MEDS: FAMOTIDINE 20MG TABLET PO SCH (08:56)
[2021-10-16] MEDS: MEGESTROL ACETATE 400 MG/10 ML UDC PO SCH ×2 (08:57→17:36)
[2021-10-16] MEDS: POTASSIUM-SODIUM PHOSPHATE POWDER PACKET PO SCH (08:57)
[2021-10-16] MEDS ORDERED: MAGNESIUM OXIDE 400MG TABLET PO SCH (09:00)
[2021-10-16] MEDS: MAGNESIUM OXIDE 400MG TABLET PO SCH (17:36)
[2021-10-16 20:00] VITALS: BP 133/70
[2021-10-17] MEDS: DILTIAZEM HCL 60MG TABLET PO SCH ×2 (05:48→09:24)
[2021-10-17 07:44] LABS: BASOPHILS % 0.7 % (0.0-2.0); EOSINOPHILS % 0.8 % (0.0-5.0); HEMATOCRIT. 34.4 % (36.0-48.0); HEMOGLOBIN. 11.5 g/dL (12.0-16.0); LYMPHOCYTES % 12.1 % (20.0-50.0); MEAN CORPUSCULAR HEMOGLOBIN 30.5 pg (28.0-32.0); MEAN CORPUSCULAR VOLUME 91.3 fL (81.0-99.0); MEAN PLATELET VOLUME 8.5 fl (7.4-10.4); MONOCYTES % 8.3 % (2.0-8.0); NEUTROPHILS % 78.1 % (40.0-76.0); PLATELET 396 x1000/uL (130-400); RED BLOOD CELL COUNT 3.77 mill/uL (4.2-5.4); RED CELL DISTRIBUTION WIDTH 14.6 % (11.6-14.6)
[2021-10-17 08:00] VITALS: BP 126/71
[2021-10-17 08:02] LABS: PHOSPHORUS 2.4 mg/dL (2.5-4.9)
[2021-10-17] MEDS: MEGESTROL ACETATE 400 MG/10 ML UDC PO SCH (09:00)
[2021-10-17] MEDS: POTASSIUM-SODIUM PHOSPHATE POWDER PACKET PO SCH (09:23)
[2021-10-17] MEDS: MAGNESIUM OXIDE 400MG TABLET PO SCH (09:25)
[2021-10-17] MEDS: FAMOTIDINE 20MG TABLET PO SCH (09:25)
[2021-10-17] MEDS ORDERED: ASPI-1497 PO (13:07)
[2021-10-17] MEDS ORDERED: DILT180T11 PO (13:10)
[2021-10-17] MEDS ORDERED: MAGN400T29 PO (13:13)
[2021-10-17 13:19] VITALS: BP 3/71
== END 2021-10-17 14:03 | disposition home health service (06) | DRG 189 ==
PROVIDERS: ADMIT Psychiatry & Neurology Neurology; ATTEND Psychiatry & Neurology Neurology
DX: J96.00 Acute respiratory failure, unspecified whether with hypoxia or hypercapnia (principal); J69.0 Pneumonitis due to inhalation of food and vomit; A41.59 Other Gram-negative sepsis; I50.33 Acute on chronic diastolic (congestive) heart failure; R65.21 Severe sepsis with septic shock; J18.9 Pneumonia, unspecified organism; G93.40 Encephalopathy, unspecified; K56.7 Ileus, unspecified; N17.9 Acute kidney failure, unspecified; K56.600 Partial intestinal obstruction, unspecified as to cause; E46 Unspecified protein-calorie malnutrition; E03.9 Hypothyroidism, unspecified; E05.90 Thyrotoxicosis, unspecified without thyrotoxic crisis or storm; E11.65 Type 2 diabetes mellitus with hyperglycemia; E83.39 Other disorders of phosphorus metabolism; E87.6 Hypokalemia; F03.90 Unspecified dementia, unspecified severity, without behavioral disturbance, psychotic disturbance, mood disturbance, and anxiety; I27.20 Pulmonary hypertension, unspecified; I11.0 Hypertensive heart disease with heart failure; K56.41 Fecal impaction; K80.20 Calculus of gallbladder without cholecystitis without obstruction; I48.91 Unspecified atrial fibrillation; G90.9 Disorder of the autonomic nervous system, unspecified; R26.89 Other abnormalities of gait and mobility; F39 Unspecified mood [affective] disorder; Z79.82 Long term (current) use of aspirin; Z79.899 Other long term (current) drug therapy; Z68.23 Body mass index [BMI] 23.0-23.9, adult; Z86.73 Personal history of transient ischemic attack (TIA), and cerebral infarction without residual deficits; Z86.79 Personal history of other diseases of the circulatory system
CPT/HCPCS: 36415; 74018; 74230; 80048; 80053; 81003; 83735; 84100; 84439; 84443; 85025; 92523; 92610; 92611; 93970; 97110; 97112; 97162; 97166; 97530; 97535; J0696; J3475; J3490; J7060; Q0163; A5200